=== PATIENT | female | born 1995 | race African-American/Black ===

== ENCOUNTER 2022-12-14 15:55 | Inpatient (IN) | payer OTHER ==
[2022-12-14] MEDS ORDERED: ONDANSETRON 4 MG/2 ML VIAL IVPUSH ONE ×2 (16:54→18:56)
[2022-12-14] MEDS ORDERED: KETOROLAC TROMETHAMINE 30 MG/1 ML VIAL IVPUSH ONE (16:54)
[2022-12-14] MEDS ORDERED: ACETAMINOPHEN 1000 MG/100 ML BAG IVPB ONE ×2 (16:54→23:27)
[2022-12-14] MEDS ORDERED: SODIUM CHLORIDE 0.9% 500 ML INFUS.BAG IV ONE (16:54)
[2022-12-14] MEDS ORDERED: ONDANSETRON 4 MG/2 ML VIAL ONE ×2 (17:42→19:02)
[2022-12-14] MEDS ORDERED: KETOROLAC TROMETHAMINE 30 MG/1 ML VIAL ONE (17:42)
[2022-12-14] MEDS ORDERED: ACETAMINOPHEN INJECTION 100 ML IVPB ONE ×2 (17:42→23:31)
[2022-12-14 18:06] LABS: HEMATOCRIT 35.6 % (32.4-45.2); HEMOGLOBIN 12.2 GM/dL (10.7-15.3); MCH 31.7 pg (25.7-33.7); MCHC 34.2 g/dl (32.0-36.0); MEAN CELL VOLUME 92.6 fl (80-96); MEAN PLT VOLUME 8.7 fl (7.5-11.1); PLATELET COUNT 290 10^3/uL (134-434); RBC 3.84 M/mm3 (3.60-5.2); WHITE BLOOD COUNT 15.3 K/mm3 (4.0-10.0)
[2022-12-14 18:08] LABS: INR 1.41 (0.83-1.09); PROTHROMBIN TIME (PATIENT) 16.3 SEC (9.7-13.0)
[2022-12-14 18:20] LABS: EPI CELLS 16 /uL (0-25.1); HYALINE CASTS 8 /uL (0-3.1); PH,URINE 5.5 (5.0-8.0); URINE APPEARANCE CLOUDY; URINE BACTERIA 539 /uL (0-1359); URINE BILIRUBIN NEGATIVE (NEGATIVE); URINE COLOR YELLOW; URINE GLUCOSE (UA) NEGATIVE (NEGATIVE); URINE KETONE 3+ (NEGATIVE); URINE LEUK ESTERASE 2+ (NEGATIVE); URINE NITRITE NEGATIVE (NEGATIVE); URINE PROTEIN 1+ (NEGATIVE); URINE WBC 391 /uL (0-25.8)
[2022-12-14 18:21] LABS: HCG,QUALITATIVE URINE Negative
[2022-12-14 18:40] LABS: ALBUMIN 3.1 g/dl (3.4-5.0); BLOOD UREA NITROGEN 7.2 mg/dL (7-18); CALCIUM 8.8 mg/dL (8.5-10.1)
[2022-12-14 18:41] LABS: MAGNESIUM 1.7 mg/dL (1.8-2.4)
[2022-12-14 18:44] LABS: CREATININE 0.9 mg/dL (0.55-1.3)
[2022-12-14] MEDS ORDERED: MAGNESIUM SULF 50% (8.12 MEQ/2 ML-1 GM VIAL) IVPB ONE (18:56)
[2022-12-14] MEDS ORDERED: MAGNESIUM SULF 50% (8.12 MEQ/2 ML-1 GM VIAL) ONE (19:02)
[2022-12-14] MEDS ORDERED: MAGNESIUM 1GM/D5W - 1 GM/100 ML IVPB IVPB ONE (19:02)
[2022-12-14 19:07] LABS: URINE RBC 39 /uL (0-23.9)
[2022-12-14] MEDS: KCL 10 MEQ IVPB 10 MEQ/100 ML INFUS.BAG IVPB SCH ×3 (20:24→23:30)
[2022-12-14] MEDS ORDERED: KCL 10 MEQ IVPB 30 MEQ/300 ML INFUS.BAG IVPB ONE (20:25)
[2022-12-14] MEDS ORDERED: METOCLOPRAMIDE HCL INJECTION 10 MG/2 ML VIAL IVPUSH ONE (20:26)
[2022-12-14] MEDS ORDERED: morphine CARPU-JECT 4 MG/1 ML DISP.SYRIN IVPUSH ONE (20:47)
[2022-12-14] MEDS ORDERED: LACTATED RINGERS SOLUTION 1000 ML INFUS.BAG IV ONE (20:55)
[2022-12-14] MEDS ORDERED: morphine SULFATE 4 MG/ML VIAL ONE (21:00)
[2022-12-14] MEDS ORDERED: METOCLOPRAMIDE HCL INJECTION 10 MG/2 ML VIAL ONE (21:01)
[2022-12-15] MEDS ORDERED: ONDANSETRON 4 MG/2 ML VIAL IVPUSH ONE (00:11)
[2022-12-15] MEDS ORDERED: ONDANSETRON 4 MG/2 ML VIAL ONE (00:16)
[2022-12-15] MEDS ORDERED: CEFTRIAXONE 1 GM in DEXTROSE 5%-WATER - 100 ML IVPB ONE (00:21)
[2022-12-15] MEDS ORDERED: LACTATED RINGERS SOLUTION 1000 ML INFUS.BAG IV ONE (00:37)
[2022-12-15] MEDS ORDERED: DOXYCYCLINE INJECTION 100 MG in DEXTROSE 5%-WATER 100 ML IVPB ONE (00:53)
[2022-12-15] MEDS ORDERED: CEFTRIAXONE 1 GM/50 ML BAG ONE (01:03)
[2022-12-15 01:19] LABS: VENOUS BASE EXCESS -1.9 mmol/L (-2-2); VENOUS O2 SATURATION 94.9 % (70-80); VENOUS PCO2 30.6 mmHg (38-52); VENOUS PH 7.459 (7.310-7.410)
[2022-12-15 01:20] LABS: HEMATOCRIT 30.2 % (32.4-45.2); HEMOGLOBIN 10.7 GM/dL (10.7-15.3); MCH 32.5 pg (25.7-33.7); MCHC 35.4 g/dl (32.0-36.0); MEAN CELL VOLUME 91.9 fl (80-96); MEAN PLT VOLUME 8.1 fl (7.5-11.1); PLATELET COUNT 208 10^3/uL (134-434); RBC 3.29 M/mm3 (3.60-5.2); RDW 13.2 % (11.6-15.6); WHITE BLOOD COUNT 9.2 K/mm3 (4.0-10.0)
[2022-12-15] MEDS ORDERED: DOXYCYCLINE HYCLATE 100 MG VIAL ONE (01:45)
[2022-12-15 01:49] LABS: ALBUMIN 2.8 g/dl (3.4-5.0); BLOOD UREA NITROGEN 6.6 mg/dL (7-18)
[2022-12-15 01:50] LABS: CALCIUM 8.1 mg/dL (8.5-10.1)
[2022-12-15 01:52] LABS: CREATININE 0.9 mg/dL (0.55-1.3)
[2022-12-15 01:54] LABS: TOT PROT 6.2 g/dl (6.4-8.2)
[2022-12-15] MEDS ORDERED: ACETAMINOPHEN 325 MG TABLET (FP) PO PRN (01:59)
[2022-12-15] MEDS ORDERED: POTASSIUM CHLORIDE TABS 20 MEQ TABLET.ER (FP) PO ONE (02:00)
[2022-12-15] MEDS: KETOROLAC TROMETHAMINE 30 MG/1 ML VIAL IVPUSH PRN ×3 (02:37→18:54)
[2022-12-15] MEDS ORDERED: KETOROLAC TROMETHAMINE 30 MG/1 ML VIAL ONE (02:38)
[2022-12-15] MEDS ORDERED: SODIUM CHLORIDE 1,000 ML IV SCH (03:00)
[2022-12-15 06:30] VITALS: BMI 30.7
[2022-12-15 07:35] LABS: HEMATOCRIT 25.4 % (32.4-45.2); HEMOGLOBIN 8.9 GM/dL (10.7-15.3); MCH 32.4 pg (25.7-33.7); MEAN CELL VOLUME 92.5 fl (80-96); MEAN PLT VOLUME 8.6 fl (7.5-11.1); PLATELET COUNT 188 10^3/uL (134-434); RBC 2.75 M/mm3 (3.60-5.2); RDW 13.1 % (11.6-15.6); WHITE BLOOD COUNT 14.2 K/mm3 (4.0-10.0)
[2022-12-15 07:41] LABS: CALCIUM 7.2 mg/dL (8.5-10.1)
[2022-12-15 07:42] LABS: BLOOD UREA NITROGEN 8.7 mg/dL (7-18); MAGNESIUM 1.7 mg/dL (1.8-2.4)
[2022-12-15 07:45] LABS: CREATININE 0.8 mg/dL (0.55-1.3); PHOSPHOROUS 3.1 mg/dL (2.5-4.9)
[2022-12-15 07:46] LABS: BILIRUBIN,TOTAL 0.9 mg/dL (0.2-1); TOT PROT 5.1 g/dl (6.4-8.2)
[2022-12-15 07:56] LABS: ALBUMIN 2.2 g/dl (3.4-5.0)
[2022-12-15 08:29] LABS: ANISOCYTOSIS 0; HELMET CELLS 0; HOWELL-JOLLY BODIES 0; MACROCYTOSIS 0; OVALOCYTE 0; ROULEAU 0; SICKELED CELLS 0; TARGET CELLS 0; TEAR DROP CELLS 0; TOXIC GRANULATION 0
[2022-12-15 08:39] LABS: ANISOCYTOSIS 0; HELMET CELLS 0; HOWELL-JOLLY BODIES 0; MACROCYTOSIS 0; OVALOCYTE 0; ROULEAU 0; SICKELED CELLS 0; TARGET CELLS 0; TEAR DROP CELLS 0; TOXIC GRANULATION 0
[2022-12-15] MEDS ORDERED: MAGNESIUM SULF 50% (8.12 MEQ/2 ML-1 GM VIAL) IVPB ONE (08:45)
[2022-12-15] MEDS: SODIUM CHLORIDE 1,000 ML IV SCH (09:31)
[2022-12-15] MEDS ORDERED: CEFTRIAXONE 1 GM in DEXTROSE 5%-WATER - 50 ML IVPB SCH (10:00)
[2022-12-15 10:25] LABS: HIV INTERPRETATION NEGATIVE (NEGATIVE)
[2022-12-15] MEDS: DOXYCYCLINE INJECTION 100 MG in DEXTROSE 5%-WATER 100 ML IVPB SCH ×2 (11:53→21:53)
[2022-12-15] MEDS: ACETAMINOPHEN 1000 MG/100 ML BAG IVPB PRN ×2 (12:25→20:09)
[2022-12-15] MEDS: ONDANSETRON 4 MG/2 ML VIAL IVPUSH PRN ×2 (12:42→18:54)
[2022-12-15] MEDS ORDERED: CEFTRIAXONE 1 GM in DEXTROSE 5%-WATER - 50 ML IVPB ONE (12:45)
[2022-12-15 15:55] LABS: HEMATOCRIT 26.8 % (32.4-45.2); HEMOGLOBIN 9.2 GM/dL (10.7-15.3); MCH 31.6 pg (25.7-33.7); MCHC 34.3 g/dl (32.0-36.0); MEAN CELL VOLUME 92.1 fl (80-96); MEAN PLT VOLUME 8.1 fl (7.5-11.1); PLATELET COUNT 182 10^3/uL (134-434); RBC 2.91 M/mm3 (3.60-5.2); RDW 13.3 % (11.6-15.6); WHITE BLOOD COUNT 12.5 K/mm3 (4.0-10.0)
[2022-12-15] MEDS: PIPERACILLIN/TAZOB 3.375 GM 3.375 GM in DEXTROSE 5%-WATER - 50 ML IVPB SCH (18:54)
[2022-12-16] MEDS: KETOROLAC TROMETHAMINE 30 MG/1 ML VIAL IVPUSH PRN ×3 (00:15→21:16)
[2022-12-16] MEDS: ONDANSETRON 4 MG/2 ML VIAL IVPUSH PRN ×4 (01:00→21:20)
[2022-12-16] MEDS: PIPERACILLIN/TAZOB 3.375 GM 3.375 GM in DEXTROSE 5%-WATER - 50 ML IVPB SCH ×3 (03:06→17:13)
[2022-12-16] MEDS: ACETAMINOPHEN 1000 MG/100 ML BAG IVPB PRN ×2 (03:08→10:13)
[2022-12-16 08:17] LABS: BASO % 0.3 % (0-2.0); EOS % 1.7 % (0-4.5); HEMOGLOBIN 9.4 GM/dL (10.7-15.3); LYMPH % 5.8 % (8-40); MCH 32.1 pg (25.7-33.7); MEAN CELL VOLUME 91.8 fl (80-96); MEAN PLT VOLUME 8.6 fl (7.5-11.1); MONO % 3.1 % (3.8-10.2); NEUT % 89.1 % (42.8-82.8); PLATELET COUNT 178 10^3/uL (134-434); RBC 2.94 M/mm3 (3.60-5.2); RDW 13.2 % (11.6-15.6); WHITE BLOOD COUNT 11.5 K/mm3 (4.0-10.0)
[2022-12-16 08:47] LABS: CALCIUM 7.8 mg/dL (8.5-10.1)
[2022-12-16 08:48] LABS: ALBUMIN 2.1 g/dl (3.4-5.0); BLOOD UREA NITROGEN 6.2 mg/dL (7-18); MAGNESIUM 2.5 mg/dL (1.8-2.4)
[2022-12-16 08:51] LABS: BILIRUBIN,TOTAL 0.9 mg/dL (0.2-1); CREATININE 0.7 mg/dL (0.55-1.3)
[2022-12-16 08:52] LABS: TOT PROT 5.2 g/dl (6.4-8.2)
[2022-12-16 08:53] LABS: PHOSPHOROUS 1.2 mg/dL (2.5-4.9)
[2022-12-16] MEDS: SODIUM CHLORIDE 1,000 ML IV SCH ×2 (09:07→14:29)
[2022-12-16] MEDS ORDERED: CEFTRIAXONE 2 GM in DEXTROSE 5%-WATER 100 ML IVPB SCH (10:00)
[2022-12-16] MEDS: DOXYCYCLINE INJECTION 100 MG in DEXTROSE 5%-WATER 100 ML IVPB SCH ×2 (10:25→21:15)
[2022-12-16] MEDS ORDERED: MISOPROSTOL 100 MCG TABLET PR SCH (12:00)
[2022-12-16] MEDS: ACETAMINOPHEN 1000 MG/100 ML BAG IVPB SCH ×2 (12:17→17:54)
[2022-12-16] MEDS ORDERED: POTASSIUM PHOSPHATE 30 MM in DEXTROSE 5%-WATER - 500 ML IVPB ONE (19:03)
[2022-12-17] MEDS: ACETAMINOPHEN 1000 MG/100 ML BAG IVPB SCH ×4 (00:36→18:01)
[2022-12-17] MEDS: PIPERACILLIN/TAZOB 3.375 GM 3.375 GM in DEXTROSE 5%-WATER - 50 ML IVPB SCH ×2 (03:00→10:07)
[2022-12-17] MEDS ORDERED: FUROSEMIDE 40 MG/4 ML INJECTABLE VIAL IVPUSH ONE (06:14)
[2022-12-17 07:04] LABS: HEMATOCRIT 28.9 % (32.4-45.2); HEMOGLOBIN 10.1 GM/dL (10.7-15.3); MCH 32.3 pg (25.7-33.7); MCHC 34.9 g/dl (32.0-36.0); MEAN CELL VOLUME 92.5 fl (80-96); MEAN PLT VOLUME 8.6 fl (7.5-11.1); PLATELET COUNT 194 10^3/uL (134-434); RBC 3.12 M/mm3 (3.60-5.2); RDW 13.5 % (11.6-15.6); WHITE BLOOD COUNT 11.1 K/mm3 (4.0-10.0)
[2022-12-17 07:25] LABS: CALCIUM 7.7 mg/dL (8.5-10.1)
[2022-12-17 07:26] LABS: ALBUMIN 2.2 g/dl (3.4-5.0); BLOOD UREA NITROGEN 5.5 mg/dL (7-18); MAGNESIUM 2.3 mg/dL (1.8-2.4)
[2022-12-17 07:29] LABS: CREATININE 0.6 mg/dL (0.55-1.3); PHOSPHOROUS 2.6 mg/dL (2.5-4.9)
[2022-12-17 07:31] LABS: BILIRUBIN,TOTAL 1.1 mg/dL (0.2-1); TOT PROT 5.8 g/dl (6.4-8.2)
[2022-12-17] MEDS: DOXYCYCLINE INJECTION 100 MG in DEXTROSE 5%-WATER 100 ML IVPB SCH ×2 (10:09→22:26)
[2022-12-17] MEDS: ONDANSETRON 4 MG/2 ML VIAL IVPUSH PRN (10:09)
[2022-12-17] MEDS ORDERED: POTASSIUM CHLORIDE TABS 20 MEQ TABLET.ER (FP) PO ONE ×3 (12:59→18:00)
[2022-12-17 13:06] VITALS: RESP 18
[2022-12-17] MEDS: PROCHLORPERAZINE INJECTION 10 MG/2 ML VIAL IVPB PRN ×2 (15:33→22:27)
[2022-12-17] MEDS: CEFTRIAXONE 2 GM in DEXTROSE 5%-WATER 100 ML IVPB SCH (15:34)
[2022-12-17] MEDS ORDERED: LORazepam 1 MG TABLET PO PRN (18:28)
[2022-12-17] MEDS ORDERED: LORazepam 2 MG/ML SDV VIAL IVPB PRN (18:32)
[2022-12-17] MEDS: LORazepam 1 MG TABLET PO PRN (22:26)
[2022-12-18] MEDS: ACETAMINOPHEN 1000 MG/100 ML BAG IVPB SCH ×2 (00:15→05:24)
[2022-12-18 08:05] LABS: HEMATOCRIT 27.5 % (32.4-45.2); HEMOGLOBIN 9.6 GM/dL (10.7-15.3); MCH 31.7 pg (25.7-33.7); MCHC 34.8 g/dl (32.0-36.0); MEAN CELL VOLUME 91.1 fl (80-96); MEAN PLT VOLUME 8.7 fl (7.5-11.1); PLATELET COUNT 224 10^3/uL (134-434); RBC 3.02 M/mm3 (3.60-5.2); RDW 13.7 % (11.6-15.6)
[2022-12-18 08:08] LABS: ALBUMIN 2.1 g/dl (3.4-5.0); BLOOD UREA NITROGEN 7.9 mg/dL (7-18); MAGNESIUM 2.1 mg/dL (1.8-2.4)
[2022-12-18 08:11] LABS: CREATININE 0.6 mg/dL (0.55-1.3)
[2022-12-18 08:12] LABS: BILIRUBIN,TOTAL 0.6 mg/dL (0.2-1); TOT PROT 5.5 g/dl (6.4-8.2)
[2022-12-18] MEDS: DOXYCYCLINE INJECTION 100 MG in DEXTROSE 5%-WATER 100 ML IVPB SCH ×2 (09:45→21:25)
[2022-12-18] MEDS: CEFTRIAXONE 2 GM in DEXTROSE 5%-WATER 100 ML IVPB SCH (09:46)
[2022-12-18] MEDS: PROCHLORPERAZINE INJECTION 10 MG/2 ML VIAL IVPB PRN ×2 (09:51→14:01)
[2022-12-18] MEDS: CEFAZOLIN SODIUM 2 GM in DEXTROSE 5%-WATER 100 ML IVPB SCH (17:06)
[2022-12-18] MEDS ORDERED: ENOXAPARIN NA (PORCINE) 40 MG/0.4 ML DISP.SYRIN SQ SCH (19:15)
[2022-12-18] MEDS: ENOXAPARIN NA (PORCINE) 40 MG/0.4 ML DISP.SYRIN SQ SCH (21:24)
[2022-12-18] MEDS: LORazepam 1 MG TABLET PO PRN (21:25)
[2022-12-18] MEDS ORDERED: LACTOBACILLUS ACIDOPHILUS 1 TABLET PO SCH (22:00)
[2022-12-19] MEDS: CEFAZOLIN SODIUM 2 GM in DEXTROSE 5%-WATER 100 ML IVPB SCH ×3 (02:15→17:25)
[2022-12-19] MEDS: PROCHLORPERAZINE INJECTION 10 MG/2 ML VIAL IVPB PRN ×2 (07:25)
[2022-12-19 08:07] LABS: ALBUMIN 2.3 g/dl (3.4-5.0); BLOOD UREA NITROGEN 6.1 mg/dL (7-18); CALCIUM 7.9 mg/dL (8.5-10.1); MAGNESIUM 2.1 mg/dL (1.8-2.4)
[2022-12-19 08:10] LABS: CREATININE 0.5 mg/dL (0.55-1.3); PHOSPHOROUS 2.6 mg/dL (2.5-4.9)
[2022-12-19 08:11] LABS: BILIRUBIN,TOTAL 0.6 mg/dL (0.2-1); TOT PROT 5.9 g/dl (6.4-8.2)
[2022-12-19 08:18] LABS: HEMATOCRIT 29.1 % (32.4-45.2); HEMOGLOBIN 10.1 GM/dL (10.7-15.3); MCH 31.6 pg (25.7-33.7); MCHC 34.7 g/dl (32.0-36.0); MEAN CELL VOLUME 91.1 fl (80-96); MEAN PLT VOLUME 8.7 fl (7.5-11.1); PLATELET COUNT 293 10^3/uL (134-434); WHITE BLOOD COUNT 13.5 K/mm3 (4.0-10.0)
[2022-12-19] MEDS: DOXYCYCLINE INJECTION 100 MG in DEXTROSE 5%-WATER 100 ML IVPB SCH (09:48)
[2022-12-19] MEDS ORDERED: ENOXAPARIN NA (PORCINE) 40 MG/0.4 ML DISP.SYRIN SQ SCH (10:00)
[2022-12-19] MEDS ORDERED: ACETAMINOPHEN 1000 MG/100 ML BAG IVPB ONE (10:56)
[2022-12-19] MEDS: ENOXAPARIN NA (PORCINE) 40 MG/0.4 ML DISP.SYRIN SQ SCH (12:19)
[2022-12-19] MEDS ORDERED: ACETAMINOPHEN 1000 MG/100 ML BAG IVPB PRN (17:55)
[2022-12-19 17:58] VITALS: BP 125/84; PULSE 88; TEMP 99.1
== END 2022-12-19 18:48 | disposition short-term general hospital (02) | DRG 531 ==
LOC: JER 15:55 → JERBED 12-15 01:40 → J4W 12-15 03:45
PROVIDERS: ADMIT Internal Medicine; ATTEND Internal Medicine
DX: N70.93 Salpingitis and oophoritis, unspecified (principal); R10.32 Left lower quadrant pain; M54.50 Low back pain, unspecified; B96.29 Other Escherichia coli [E. coli] as the cause of diseases classified elsewhere; N39.0 Urinary tract infection, site not specified; D72.829 Elevated white blood cell count, unspecified; F17.210 Nicotine dependence, cigarettes, uncomplicated; F12.90 Cannabis use, unspecified, uncomplicated; E83.42 Hypomagnesemia; E87.6 Hypokalemia
CPT/HCPCS: 36415; 71045-TC-FY; 74177-TC; 76830-TC; 80053; 81003; 82803; 82962; 83605; 83735; 84100; 84443; 84703; 85025; 85027; 85610; 86140; 86850; 86900; 86901; 87040; 87086; 87186; 87324; 87389; 87449; 87491; 87591; 93005; 93010; 93306-TC; 94010; 99291; 99292; C9803-CS; Q9967; U0003; U0005